=== PATIENT | male | born 1990 | race Two or more races ===

== ENCOUNTER 2020-08-03 12:43 | Emergency (ER) | payer SELFPAY ==
[~2020-08-03] VITALS: Ht 165.1 cm; Wt 74.8 kg
[2020-08-03 12:51] VITALS: BP 139/97
--- NOTE | 2020-08-03 12:55 | NUR ---
PATIENT ASSISTED TO BED 9, REMOVED CLOTH COVERED. RIGHT HAND INTACT, CUT IS STILL ACTIVELY BLEEDING. COVERED WITH DRY GAUZE.
[2020-08-03] MEDS ORDERED: LIDOCAINE HCL/MPF 1% 30 ML VIAL IJ ONE (12:56)
[2020-08-03] MEDS ORDERED: HYDROCODONE/APAP 5/325MG TABLET ONE (12:57)
[2020-08-03] MEDS ORDERED: LIDOCAINE MPF 1%-EPI 1:200,000 30 ML VIAL IJ ONE (12:58)
--- NOTE | 2020-08-03 12:58 | NUR ---
DR. FAY AT BEDSIDE FOR EVAL.
[2020-08-03] MEDS ORDERED: HYDROCODONE/APAP 5/325MG TABLET PO ONE (13:00)
--- NOTE | 2020-08-03 13:06 | NUR ---
[facility] TRAY PREPARED. CLAIMS SUPERVISOR AT BEDSIDE.
--- NOTE | 2020-08-03 13:06 | NUR ---
LIDOCAINE WITHOUT EPI RETURNED IN THE OMNICELL. PULLED OUT LIDOCAINE WITH EPI AND GAVE IT TO DR. FAY.
[2020-08-03] MEDS ORDERED: BACITRACIN ZINC OINT PACKET 1 EA PACKET TP ONE (13:41)
[2020-08-03] MEDS ORDERED: SULF1TAB48 PO (13:42)
[2020-08-03] MEDS ORDERED: TDAP [DIPH/PERTUSSIS/TET] 0.5 ML VIAL IM ONE ×2 (13:42→14:00)
--- NOTE | 2020-08-03 14:06 | NUR ---
LAC REPAIR DONE BY DR. FAY, APPLIED BACITRACIN, COVERED WITH DRY DRESSING. COLLE SPLINT APPLIED ON RIGHT HAND. TDAP GIVEN. EXPLAINED RX IN [place]. Patient discharged to home in stable condition. Written and verbal after care instructions given. Patient verbalizes understanding of instruction.
== END 2020-08-03 14:09 | disposition home or self-care (01) ==
LOC: ER 12:43
DX: S61.411A Laceration without foreign body of right hand, initial encounter (principal); Z60.2 Problems related to living alone; Z79.899 Other long term (current) drug therapy; W26.8XXA Contact with other sharp object(s), not elsewhere classified, initial encounter; Y93.89 Activity, other specified; Y92.89 Other specified places as the place of occurrence of the external cause; Y99.8 Other external cause status
CPT/HCPCS: 12002; 73130; 90471; 90715; 99283; A6403; J3490 ×2; L3763